=== PATIENT | male | born 1965 | race Caucasian/White ===

== ENCOUNTER 2021-10-08 16:52 | Outpatient (CLI) | payer OTHER, SELFPAY ==
--- NOTE | 2021-10-08 17:04 | XRR_ITS ---
PROCEDURE INFORMATION: Exam: XR Left Shoulder Exam date and time: 10/08/2021 5:06 PM Age: 56 years old Clinical indication: Pain; Shoulder; Left; Additional info: Chronic left shoulder pain TECHNIQUE: Imaging protocol: XR Left shoulder. Views: 2 or more views. COMPARISON: No relevant prior studies available. FINDINGS: Bones/joints: Negative for acute bony abnormality. Bone spurs present on the the inferior aspect of the humeral head. Soft tissues: A soft tissue ossific density is seen in the lateral axillary soft tissues XR/XR shoulder LT min 2V* [id number] IMPRESSION: No acute findings.
== END 2021-10-08 16:53 | disposition home or self-care (01) ==
LOC: RAD 16:57
PROVIDERS: PCP Family Medicine; Visit Provider Family Medicine
DX: G89.29 Other chronic pain (principal); M25.512 Pain in left shoulder
CPT/HCPCS: 73030

== ENCOUNTER 2021-12-16 09:27 | Outpatient (CLI) | payer OTHER, SELFPAY ==
--- NOTE | 2021-12-16 09:36 | MR_ITS ---
WS: [id number] MRI LEFT SHOULDER NONCONTRAST TECHNIQUE: Sagittal T2, coronal T1, T2 and proton density imaging. Axial gradient PDE imaging. CLINICAL INFORMATION: L SHOULDER PAIN COMPARISON: None. FINDINGS: Moderate degenerative arthritis at the AC joint with mild edema and narrowing of the subacromial spac e. Advanced degenerative arthritis glenohumeral joint with joint space narrowing and hypertrophic [place] nges along the medial humeral head. Intra-articular loose bodies as seen on the prior radiograph the largest measuring 13 mm in the axillary recess. Chronic thinning of the distal supraspinatus with tendinopathy. Normal infraspinatus. Normal teres mi nor. Normal subscapularis. Small subcoracoid effusion. Biceps tendon present within the bicipital patricia ove. Normal bone marrow signal in the glenoid. Increased T2 signal abnormality in the rotator interva l with synovial thickening along the axillary recess can be seen with adhesive capsulitis in appropri ate clinical setting. Shoulder joint capsule appears small. MR/MR shoulder LT wo con* [id number] IMPRESSION: 1. Moderate degenerative arthritis AC joint with edema and narrowing of the banda bacromial space. 2. Chronic thinning of the distal supraspinatus with tendinopathy. 3. No high-grade rotator cuff tears. 4. Intra-articular loose bodies extending into the axillary recess. 5. Advanced narrowing glenohumeral joint with hypertrophic changes along the m edial humeral head. 6. Additional imaging findings suspicious for adhesive capsulitis in appropri ate clinical setting described above.
== END 2021-12-16 09:28 | disposition home or self-care (01) ==
PROVIDERS: PCP Family Medicine; Visit Provider Family Medicine
DX: M19.012 Primary osteoarthritis, left shoulder (principal)
CPT/HCPCS: 73221